=== PATIENT | female | born 1945 | race Caucasian/White ===

== ENCOUNTER 2017-02-08 09:59 | Outpatient (CLI) | payer MEDICARE, OTHER ==
--- NOTE | 2017-02-11 13:42 | Mammography Report ---
DIGITAL SCREENING MAMMOGRAM: 02/08/2017 CLINICAL INDICATION: A 71-year-old with history of benign biopsy for screening. COMPARISON: 07/2015, 12/2013, 01/2011, 12/2009 FINDINGS: The breasts again demonstrate scattered fibroglandular densities bilaterally. Coarse, typ ically benign calcifications are present. No suspicious masses, clustered microcalcifications, or re gions of architectural distortion are identified. IMPRESSION: BENIGN FINDINGS. RECOMMENDATION: Routine annual screening unless otherwise clinically indicated. BIRADS CATEGORY 2 - BENIGN FINDINGS. STANDARD QUALIFYING STATEMENTS 1. This examination was reviewed with the aid of Computer-Aided Detection (CAD). 2. A negative or benign imaging report should not delay biopsy if clinically suspicious findings are present. Consider surgical consultation if warranted. More than 5% of cancers are not identified by i maging. 3. Dense breasts may obscure an underlying neoplasm. JOB #: [id number] EXT JOB #:[id number]
== END 2017-02-08 10:00 | disposition home or self-care (01) ==
LOC: DI.S 09:59
PROVIDERS: ATTEND Physician Assistant
DX: Z12.31 Encounter for screening mammogram for malignant neoplasm of breast (principal)
CPT/HCPCS: 77067

== ENCOUNTER 2017-07-12 12:33 | Outpatient (CLI) | payer MEDICARE, OTHER | END 2017-07-12 12:34 | disposition home or self-care (01) | LOC: LAB 12:33 | PROVIDERS: ATTEND Registered Nurse | DX: M79.604 Pain in right leg (principal) | CPT/HCPCS: 36415; 85379 ==

== ENCOUNTER 2017-08-13 14:53 | Outpatient (CLI) | payer MEDICARE, OTHER ==
--- NOTE | 2017-08-13 17:41 | XRAY Report ---
THREE VIEW LUMBAR SPINE: 08/13/2017 CLINICAL INDICATION: Pain. FINDINGS: AP, lateral, coned down views of the lumbar spine demonstrate mild degenerative disk and facet disease. There is no evidence of compression fracture. Minimal degenerative levoscoliosis is noted. The bowel gas pattern is normal. IMPRESSION: MILD DEGENERATIVE CHANGES, WITH MINIMAL LEVOSCOLIOSIS. TD: 08/13/2017 17:40
== END 2017-08-13 14:54 | disposition home or self-care (01) ==
LOC: DI.S 14:53
PROVIDERS: ATTEND Nurse Practitioner Family
DX: M51.36 Other intervertebral disc degeneration, lumbar region (principal); M47.896 Other spondylosis, lumbar region; M41.86 Other forms of scoliosis, lumbar region
CPT/HCPCS: 72100

== ENCOUNTER 2020-05-19 15:36 | Outpatient (CLI) | payer MEDICARE, OTHER | END 2020-05-19 15:37 | disposition home or self-care (01) | LOC: LAB.S 15:36 | PROVIDERS: ATTEND Nurse Practitioner Family | DX: Z01.84 Encounter for antibody response examination (principal); Z01.83 Encounter for blood typing | CPT/HCPCS: 36415; 86769; 86850; 86900; 86901 ==

== ENCOUNTER 2021-03-30 07:30 | Outpatient (CLI) | payer MEDICARE, OTHER ==
--- NOTE | 2021-03-30 11:17 | DEXA Report ---
PROCEDURE: Dexa Spine and/or Hip INDICATIONS: POST MENOPAUSAL, ELEVATED LIVER ENZYMES TECHNIQUE: Dual energy x-ray absorptiometry (DXA) was performed on a Interse System. Regions measur ed are the AP Spine, femoral neck, and if needed forearm. COMPARISON: None. FINDINGS: Lumbar Spine: Bone Mineral Density 1.244 g/cm/cm,T score 0.5, normal Left Hip: Bone Mineral Density 0.961 g/cm/cm,T score -0.4, normal Left Femoral Neck: Bone Mineral Density 0.856 g/cm/cm, T score -1.3, mild osteopenia (T score greater or equal to -1.0: NORMAL) (T score from -1.1 to -2.4: OSTEOPENIA) (T score less than or equal to -2.5 to: OSTEOPOROSIS) Impression: Mild osteopenia in the left femoral neck. Patients with diagnosis of osteoporosis or osteopenia should have regular bone mineral density assess ment. For those eligible for Medicare, routine testing is allowed once every 2 years. Testing frequ ency can be increased for patients who have rapidly progressing disease or for those who are receivin g medical therapy to restore bone mass. Reviewed by: Stephanie Medina MD on 03/30/2021 11:16 AM PST Approved by: Stephanie Medina MD on 03/30/2021 11:16 AM PST Station ID: [id number]
--- NOTE | 2021-03-30 15:19 | Ultrasound Report ---
PROCEDURE: Abdomen Limited INDICATIONS: POST MENOPAUSAL, ELEVATED LIVER ENZYMES TECHNIQUE: Real-time scanning was performed of the abdominal and retroperitoneal organs, with image documentatio n. COMPARISON: None. FINDINGS: Liver: Liver is normal in size and homogeneous in echotexture. Gallbladder: Gallbladder demonstrates multiple mobile foci of increased echogenicity. Wall thickness is within normal limits measuring 1.7 mm. Biliary ducts: Intrahepatic bile ducts are non-dilated. Extrahepatic bile duct caliber measures 4.5 mm. Normal is 6-7 mm or less in diameter, or 10 mm or less post-cholecystectomy. Pancreas: Visualized portions of the pancreas are sonographically normal. Kidneys: Right kidney measures 10.8 cm long. No hydronephrosis or nephrolithiasis. No solid masses . IMPRESSION: 1. Cholelithiasis without imaging evidence of cholecystitis. Reviewed by: Stephanie Medina MD on 03/30/2021 3:18 PM PST Approved by: Stephanie Medina MD on 03/30/2021 3:18 PM PST Station ID: [id number]
== END 2021-03-30 07:31 | disposition home or self-care (01) ==
LOC: DI 07:30
PROVIDERS: ATTEND Nurse Practitioner Family
DX: Z78.0 Asymptomatic menopausal state (principal); R74.01 Elevation of levels of liver transaminase levels; M85.88 Other specified disorders of bone density and structure, other site; K80.20 Calculus of gallbladder without cholecystitis without obstruction

== ENCOUNTER 2021-03-30 07:36 | Outpatient (CLI) | payer MEDICARE, OTHER ==
--- NOTE | 2021-03-31 10:18 | Mammography Report ---
BILATERAL DIGITAL SCREENING MAMMOGRAM 3D/2D: 03/30/2021 CLINICAL: Routine screening. Comparison is made to exams dated: 02/08/2017 mammogram, 08/24/2015 mammogram, 01/06/2014 mammogram - [facility], and 02/20/2011 mammogram - [facility]. There are scattere d fibroglandular elements in both breasts. There are benign calcifications in both breasts. No significant masses, calcifications, or other findings are seen in either breast. There has been no significant interval change. IMPRESSION: BENIGN There is no mammographic evidence of malignancy. A 1 year screening mammogram is recommended. This exam was interpreted at Station ID: [id number]. NOTE: For mammograms, a report in lay terms will be sent to the patient. Approximately 15% of breast malignancies will not be visualized mammographically. In the management of a palpable breast mass, a negative mammogram must not discourage biopsy of a clinically suspicious lesion. Electronically Signed By: Farhan Hansen M.D. [email or web address]/[email or web address]:03/30/2021 10:02:47 ACR BI-RADS Category 2: Benign Finding(s) 3342F PARENCHYMAL PATTERN: (A) - The breast(s) demonstrate(s) scattered fibroglandular densities. BI-RADS CATEGORY: (2) - 2 RECOMMENDATION: (ANNUAL) - Recommend routine annual screening mammography. [id number] 1 year screening LATERALITY: (B)
== END 2021-03-30 07:37 | disposition home or self-care (01) ==
LOC: DI 07:36
PROVIDERS: ATTEND Nurse Practitioner Family
DX: Z12.31 Encounter for screening mammogram for malignant neoplasm of breast (principal)

== ENCOUNTER 2021-09-19 09:46 | Outpatient (CLI) | payer MEDICARE, OTHER ==
[2021-09-19 11:07] LABS: BASOPHILS # (AUTO) 0.1 10^3/uL (0.0-0.1); BASOPHILS % (AUTO) 0.8 %; EOSINOPHILS # (AUTO) 0.2 10^3/uL (0.0-0.7); EOSINOPHILS % (AUTO) 2.4 %; HCT - HEMATOCRIT 41.5 % (37.0-47.0); HGB - HEMOGLOBIN 13.9 g/dL (12.0-16.0); LYMPHOCYTES # (AUTO) 1.2 10^3/uL (1.5-3.5); LYMPHOCYTES % (AUTO) 18.2 %; MEAN CORPUSCULAR HEMOGLOBIN 30.7 pg (27.0-31.0); MEAN CORPUSCULAR HGB CONC 33.5 g/dL (32.0-36.0); MEAN CORPUSCULAR VOLUME 91.6 fL (81.0-99.0); MONOCYTES # (AUTO) 0.7 10^3/uL (0.0-1.0); MONOCYTES % (AUTO) 11.6 %; NEUTROPHILS # (AUTO) 4.3 10^3/uL (1.5-6.6); NEUTROPHILS % (AUTO) 66.8 %; PLT - PLATELET COUNT 295 10^3/uL (130-450); RED BLOOD COUNT 4.53 10^6/uL (4.20-5.40); RED CELL DISTRIBUTION WIDTH 13.2 % (12.0-15.0); WHITE BLOOD COUNT 6.4 x10^3/uL (4.8-10.8)
[2021-09-19 11:16] LABS: BILIRUBIN,URINE NEGATIVE (NEGATIVE); GLUCOSE, URINE (UA) NEGATIVE (NEGATIVE); KETONES,URINE (UA) NEGATIVE (NEGATIVE); LEUKOCYTE ESTERASE, URINE NEGATIVE (NEGATIVE); NITRITE,URINE NEGATIVE (NEGATIVE); OCCULT BLOOD,URINE NEGATIVE (NEGATIVE); PROTEIN,URINE NEGATIVE (NEGATIVE); UROBILINOGEN,URINE 0.2 (NORMAL) E.U./dL (NORMAL)
[2021-09-19 11:24] LABS: CLARITY,URINE CLEAR (CLEAR); RBC,URINE 0-5 /HPF (0-5); SQUAMOUS EPITHELIAL CELL,UR FEW Squamous (<= Few); WBC,URINE 0-3 /HPF (0-5)
[2021-09-19 11:25] LABS: BACTERIA,URINE Few /HPF (None Seen)
[2021-09-19 11:29] LABS: ALBUMIN 3.8 g/dL (3.2-5.5); ALBUMIN/GLOBULIN RATIO 1.2 (1.0-2.2); ALKALINE PHOSPHATASE 54 IU/L (42-121); ALT ALANINE AMINOTRANSFERASE 15 IU/L (10-60); AST ASPARTATE AMINOTRANSFERASE 19 IU/L (10-42); BILIRUBIN,TOTAL 0.8 mg/dL (0.2-1.0); BUN - BLOOD UREA NITROGEN 18 mg/dL (6-20); CALCIUM 8.8 mg/dL (8.5-10.3); CARBON DIOXIDE - CO2 26 mmol/L (21-32); CHLORIDE 97 mmol/L (101-111); CHOL/HDL RATIO 2.2 (<4.4); CHOLESTEROL 185 mg/dL; CREATININE 1.1 mg/dL (0.4-1.0); GFR - MDRD 49 (>89); GLUCOSE 104 mg/dL (70-100); HDL CHOLESTEROL 85 mg/dL; LDL CHOLESTEROL,CALCULATED 88 mg/dL; MAGNESIUM 2.4 mg/dL (1.7-2.8); PHOSPHORUS 3.4 mg/dL (2.5-4.6); POTASSIUM 4.3 mmol/L (3.5-5.0); SODIUM 132 mmol/L (135-145); TOTAL PROTEIN 6.9 g/dL (6.7-8.2); TRIGLYCERIDES 62 mg/dL; URIC ACID 5.9 mg/dL (2.6-7.2); VLDL CHOLESTEROL 12 mg/dL
[2021-09-19 11:32] LABS: CREATININE,URINE 25.7 mg/dL; MICROALBUM/CREATININE RATIO,UR 11.7 ug/mg (<30.0); MICROALBUMIN,URINE 0.3 mg/dL (0-300.0)
[2021-09-19 11:47] LABS: TOTAL PROTEIN,URINE TIMED < 6 mg/dL
--- NOTE | 2021-09-19 14:54 | Ultrasound Report ---
PROCEDURE: Retroperitoneal INDICATIONS: CHRONIC KIDNEY DISEASE TECHNIQUE: Real-time scanning was performed of the retroperitoneal organs, with image documentation. COMPARISON: None. FINDINGS: Kidneys: Kidneys are normal in size. Right kidney measures 11.6 cm long; left kidney measures 9.7 c m long. Right renal cortical thickness is 0.9 cm; left renal cortical thickness is 1.3 cm. Moderately distended left renal pelvis is seen prominent in visualized portion of left proximal urete r is also noted. No gross renal stone is identified. No solid appearing renal lesion. No right-sided hydronephrosis. Bladder: Pre-void bladder volume is 55 mL. Post-void residual is 13.5 mL. Pre-void images demonstr ate no intraluminal masses or stones. On pre-void images, right ureteral chest is noted with color D oppler interrogation. (Of note, ureteral jets may not be detectable in up to 25% of cases due to ins ufficient differences in specific gravity between ureteral and bladder urine). Miscellaneous: No free abdominal fluid. IMPRESSION: 1. Moderate left-sided hydronephrosis and proximal hydroureter. No obstructing stone is seen. 2. No right-sided renal stone or hydronephrosis. 3. No gross abnormality is seen in partially distended urinary bladder. Reviewed by: Joe Stoll MD on 09/19/2021 2:53 PM PDT Approved by: Joe Stoll MD on 09/19/2021 2:53 PM PDT Station ID: [id number]
[2021-09-20 06:11] LABS: HCV AB <0.1 s/co ratio (0.0-0.9)
[2021-09-20 07:11] LABS: VITAMIN D 25-HYDROXY 28.3 ng/mL (30.0-100.0)
[2021-09-21 16:09] LABS: A/G RATIO 1.3 (0.7-1.7); ALBUMIN 3.6 g/dL (2.9-4.4); ALPHA-1-GLOBULIN 0.2 g/dL (0.0-0.4); ALPHA-2-GLOBULIN 0.7 g/dL (0.4-1.0); BETA GLOBULIN 0.9 g/dL (0.7-1.3); GAMMA GLOBULIN 0.9 g/dL (0.4-1.8); GLOBULIN, TOTAL 2.7 g/dL (2.2-3.9); PROTEIN TOTAL 6.3 g/dL (6.0-8.5)
== END 2021-09-19 09:47 | disposition home or self-care (01) ==
LOC: DI 09:46
PROVIDERS: ATTEND Internal Medicine Nephrology
DX: N13.30 Unspecified hydronephrosis (principal); N18.30 Chronic kidney disease, stage 3 unspecified
CPT/HCPCS: 36415; 80053; 80061; 81001; 81599; 82043; 82306; 82570; 83721; 83735; 83970; 84100; 84155; 84156; 84165; 84550; 85025; 86335; 86803; 87086

== ENCOUNTER 2023-08-07 11:02 | Day surgery (SDC) | payer MEDICARE, OTHER ==
[2023-08-07] MEDS: LACTATED RINGERS 1,000 ML IV ONE ×2 (11:30→12:50)
[2023-08-07] MEDS ORDERED: PROPOFOL 500 MG/50 ML 500 MG/50 ML VIAL ONE (11:31)
[2023-08-07] MEDS ORDERED: LIDOCAINE-MPF 2% 5 ML VIAL ONE (11:31)
[2023-08-07] MEDS: SIMETHICONE *(INFANT SUSP)* 40 MG/0.6 ML BOTTLE PO ONE (12:35)
[2023-08-07 13:03] VITALS: O2SAT 100
[2023-08-07 13:23] VITALS: BP 153/81
--- NOTE | 2023-08-07 14:49 | ANESTHESIA ---
Pre-Anesthesia VS, & Labs - Diagnosis pos cologuard - Procedure colonoscopy Vital Signs: Temp Pulse Resp BP Pulse Ox O2 Flow Rate 36.3 C L 62 14 153/81 H 100 08/07/23 12:50 08/07/23 13:11 08/07/23 13:11 08/07/23 13:11 08/07/23 13:11 Height: 5 ft 1 in Weight (kg): 81.5 kg Body Mass Index: 33.9 BMI Classification: Obese - NPO >8 hours - Is Patient ?: No Home Medications and Allergies Famotidine [Pepcid] 20 mg PO BID PRN 11/07/22 Levothyroxine [Synthroid] 88 mcg PO DAILY 11/07/22 Losartan [Cozaar] 25 mg PO DAILY 11/07/22 Allergies/Adverse Reactions: Allergies Allergy/AdvReac Type Severity Reaction Status Date / Time diphenhydramine Allergy Hallucinati Verified 11/07/22 17:01 [From Benadryl] ons codeine AdvReac Unknown Verified 11/07/22 16:09 erythromycin base AdvReac Unknown Verified 11/07/22 16:09 Anes History & Medical History - Anesthetic History Anesthesia Complications: reports: No previous complications Family history of Anesthesia Complications: Denies Family history of Malignant Hyperthermia: Denies - Medical History Cardiovascular: reports: Hypertension Pulmonary: reports: None Gastrointestinal: reports: GERD Urinary: reports: None Neuro: reports: None Musculoskeletal: reports: None Endocrine/Autoimmune: reports: HyPOthyroidism, Other Blood Disorders: reports: None Skin: reports: None Smoking Status: Never smoker - Surgical History General: reports: Cholecystectomy, Colonoscopy Exam General: Alert, Oriented x3, Cooperative Dental: WNL Mouth Openin Fingerbreadth Neck Mobility: Normal Mallampati classification: I Thyromental Distance: 4-6 cm Respiratory: Lungs clear Cardiovascular: Regular rate Plan Anesthesia Type: General, Total IV Consent for Procedure(s) Verified and Reviewed: Yes Code Status: Attempt Resuscitation ASA classification: 2-Mild systemic disease Is this case an emergency?: No
== END 2023-08-07 11:03 | disposition home or self-care (01) ==
LOC: SDS 11:02
PROVIDERS: ATTEND Surgery
PROC: 0DBN8ZX Excision of Sigmoid Colon, Via Natural or Artificial Opening Endoscopic, Diagnostic (ICD-10-PCS; 2023-08-07)
PROC: 0DBK8ZX Excision of Ascending Colon, Via Natural or Artificial Opening Endoscopic, Diagnostic (ICD-10-PCS; principal; 2023-08-07 12:45)
DX: R19.5 Other fecal abnormalities (principal); D12.2 Benign neoplasm of ascending colon; K63.5 Polyp of colon; K64.8 Other hemorrhoids; K57.30 Diverticulosis of large intestine without perforation or abscess without bleeding; I12.9 Hypertensive chronic kidney disease with stage 1 through stage 4 chronic kidney disease, or unspecified chronic kidney disease; N18.30 Chronic kidney disease, stage 3 unspecified; E66.01 Morbid (severe) obesity due to excess calories; Z68.33 Body mass index [BMI] 33.0-33.9, adult
CPT/HCPCS: 45380; 45385; A9270; J7120